=== PATIENT | female | born 1970 | race Caucasian/White ===

== ENCOUNTER 2025-04-11 12:27 | Emergency (ER) | payer OTHER ==
[~2025-04-11] VITALS: Ht 167.6 cm; Wt 70.3 kg
[2025-04-11 14:16] VITALS: BP 119/77; TEMP 99; O2SAT 98
== END 2025-04-11 14:16 | disposition home or self-care (01) ==
LOC: ER 12:38
DX: J02.9 Acute pharyngitis, unspecified (principal); R05.9 Cough, unspecified; B97.89 Other viral agents as the cause of diseases classified elsewhere; Z88.0 Allergy status to penicillin; Z88.2 Allergy status to sulfonamides